=== PATIENT | male | born 1985 | race Caucasian/White ===

== ENCOUNTER 2017-03-18 04:19 | Emergency (ER) | payer OTHER ==
[2017-03-18 04:25] VITALS: BP 162/70
== END 2017-03-18 05:53 | disposition home or self-care (01) ==
LOC: ED 04:19
DX: S90.31XA Contusion of right foot, initial encounter (principal); X58.XXXA Exposure to other specified factors, initial encounter; Y93.89 Activity, other specified; Y99.8 Other external cause status; Y92.89 Other specified places as the place of occurrence of the external cause